=== PATIENT | female | born 1980 | race Caucasian/White ===

== ENCOUNTER 2017-07-20 20:28 | Emergency (ER) | payer SELFPAY ==
[~2017-07-20] VITALS: Ht 162.6 cm; Wt 56.5 kg
[~2017-07-20 20:28] MED LIST: DILA8TAB4 IV; XANA0.5T PO
[2017-07-20 20:29] VITALS: BP 111/71; PULSE 85; RESP 16; TEMP 98.3; O2SAT 97
[2017-07-20] MEDS ORDERED: IVER5TAB PO (21:31)
--- NOTE | 2017-07-20 21:34 | PD ---
HPI Chief Complaint: Skin Problem Time Seen by Provider: 21:10 Travel History International Travel<30 days: No Contact w/Intl Traveler<30days: No Traveled to known affect area: No History of Present Illness HPI 36-year-old white female presents to emergency department stating that she is reinfected with complaints. She complains of a pruritic rash on her skin. She states that she was seen in the ER last month and was treated with ivermectin. She states that her rash did improve. She states that she feels that she has been re-infested. Symptoms are moderate PFSH Past Medical History Narrative Medical History substance abuse ?: Not LMP: 06/20/17 : 3 Para: 1 Miscarriage: 1 : 1 Past Surgical History Section: Yes Social History Alcohol Use: Yes Tobacco Use: Yes Substance Use: Yes Allergies-Medications (Allergen,Severity, Reaction): Coded Allergies: No Known Allergies (Unverified , 07/20/17) Reported Meds & Prescriptions Reported Meds & Active Scripts Active Ivermectin 3 Mg Tab 12 Mg PO WEEKLY Reported Dilaudid 8 mg (Hydromorphone HCl) 8 Mg Tab 8 Mg IV Q4-6H Xanax 0.5 mg (Alprazolam) Alprazolam 0.5 mg Tab 1 Tab PO TID Review of Systems Except as stated in HPI: all other systems reviewed are Neg Physical Exam Narrative GENERAL: This is a well-nourished, well-developed patient, in no apparent distress. SKIN: No rashes, ecchymoses or lesions. Warm and dry. HEAD: Atraumatic. Normocephalic. EYES: PERRL, EOMI, no discharge or injection. No scleral icterus. EARS: Clear NOSE: Nasal turbinates appear normal. THROAT: Mucosa pink and moist. Airway patent. NECK: Trachea midline. supple, moves head freely. LUNGS: Clear to auscultation. CV: Regular in rhythm. ABDOMEN: Soft nontender. EXT: No clubbing cyanosis or edema. Data Data Last Documented VS Vital Signs Date Time Temp Pulse Resp B/P (MAP) Pulse Ox O2 Delivery O2 Flow Rate FiO2 07/20/17 20:29 98.3 85 16 111/71 (84) 97 Room Air MDM Medical Decision Making Medical Screen Exam Complete: Yes Emergency Medical Condition: Yes Medical Record Reviewed: Yes Differential Diagnosis MDM: High Differential diagnoses: Abscess, folliculitis, cellulitis, lymphangitis, abrasion, contact dermatitis, mites Narrative Course Patient will be retreated with ivermectin. The patient's exam is not revealing. I question whether there is some formication issues. She will be given the benefit of doubt and retreated. She is advised to see a brick loader. Mite infestation Diagnosis Primary Impression: Infestation, mites Patient Instructions: General Instructions Additional Instructions: Continue your treatment plan. Ivermectin Follow-up with a brick loader in 1-2 weeks. Med/Other Pt SpecificInfo: Prescription(s) given Scripts Ivermectin (Ivermectin) 3 Mg Tab 12 MG PO WEEKLY, #12 Prov: Vincent Chambers MD 07/20/17 Disposition: 01 DISCHARGE HOME Condition: Stable Salvador Mensah Jul 20, 2017 21:34
== END 2017-07-20 21:43 | disposition home or self-care (01) ==
LOC: NEPK 20:28
DX: B88.0 Other acariasis (principal)
CPT/HCPCS: 99283